=== PATIENT | male | born 1980 | race Caucasian/White ===

== ENCOUNTER 2019-02-27 08:24 | Emergency (ER) | payer SELFPAY ==
[~2019-02-27] VITALS: Ht 185.4 cm; Wt 68.0 kg
[2019-02-27] MEDS ORDERED: IV NORMAL SALINE 1,000ML 1,000 ML IV SCH (09:05)
--- NOTE | 2019-02-27 09:10 | PHYS DOC ---
Past History Past Medical History: No Pertinent History Past Surgical History: No Surgical History Smoking: Cigar Alcohol Use: None Drug Use: Marijuana Adult General Chief Complaint Chief Complaint: BACK PAIN OR INJURY HPI HPI Patient is a 38-year-old male who presents with right-sided back pain that has been getting worse over the past 2 weeks. Initially after lifting to move in with family locally. Radiation down his right side into his right testicle now. Increased pain with movement. No dysuria or hematuria. No fever. No personal history of kidney stones. Reports that the pain is sharp, severe, minimal relief with ibuprofen and acetaminophen.[] Review of Systems Review of Systems Constitutional: Denies fever or chills [] Eyes: Denies change in visual acuity, redness, or eye pain [] HENT: Denies nasal congestion or sore throat [] Respiratory: Denies cough or shortness of breath [] Cardiovascular: No chest pain or palpitations[] GI: Denies abdominal pain, nausea, vomiting, bloody stools or diarrhea [] : Denies dysuria or hematuria [] Musculoskeletal: Denies back pain or joint pain [] Integument: Denies rash or skin lesions [] Neurologic: Denies headache, focal weakness or sensory changes [] Endocrine: Denies polyuria or polydipsia [] All other systems were reviewed and found to be within normal limits, except as documented in this note. Physical Exam Physical Exam Constitutional: Well developed, well nourished, mild discomfort, non-toxic appearance. [] HENT: Normocephalic, atraumatic, bilateral external ears normal, oropharynx moist, no oral exudates, nose normal. [] Eyes: PERRLA, EOMI, conjunctiva normal, no discharge. [] Neck: Normal range of motion, no tenderness, supple, no stridor. [] Cardiovascular:Heart rate regular rhythm, no murmur [] Lungs & Thorax: Bilateral breath sounds clear to auscultation [] Abdomen: Bowel sounds normal, soft, no tenderness, no masses, no pulsatile masses. [] Skin: Warm, dry, no erythema, no rash. [] Back: Tenderness and spasm of the right-sided lumbar paraspinal musculature. Decreased active range of motion, especially with left side bending and rotation. Normal gait., Mild right sided CVA tenderness. [] Extremities: No tenderness, no cyanosis, no clubbing, ROM intact, no edema. [] Neurologic: Alert and oriented X 3, normal motor function, normal sensory function, no focal deficits noted. [] Psychologic: Affect normal, judgement normal, mood normal. [] EKG EKG [] Radiology/Procedures Radiology/Procedures PROCEDURE: CT ABDOMEN PELVIS WO CONTRAST CT scan of the abdomen and pelvis without contrast 02/27/2019 CLINICAL HISTORY: Right flank pain. TECHNIQUE: Unenhanced, contiguous, 3 mm axial sections were obtained through the abdomen and pelvis. One or more of the following individualized dose reduction techniques were utilized for this study: 1. Automated exposure control. 2. Adjustment of the mA and/or kV according to patient size. 3. Use of iterative reconstruction technique. FINDINGS: Images through the lung bases demonstrate linear bands of subsegmental atelectasis involving both lower lobes. The liver, spleen, pancreas, and adrenal glands are within normal limits. No renal or ureteral calculus is seen. There is no evidence of obstruction of either collecting system. A 1.3 cm rounded low-attenuation lesion is seen involving the midpole of the left kidney. This likely represents a cyst. Very mild atherosclerotic calcification of the abdominal aorta and its branches is seen. The abdominal aorta tapers normally. The gallbladder is well-distended. No free fluid or free air is seen within the abdomen. There is no evidence of bowel obstruction. Air and stool is seen throughout the colon. The appendix is partially visualized and is within normal limits. A moderate amount of stool is seen throughout the colon. Images through the pelvis demonstrate the urinary bladder distended with urine. No free fluid is seen. A moderate amount of stool is seen involving the rectum. Very mild S-shaped curvature of the thoracolumbar spine is seen. Degenerative changes are seen involving the lower lumbar spine. IMPRESSION: No acute abnormality is seen.[] Course & Med Decision Making Course & Med Decision Making Pertinent Labs and Imaging studies reviewed. (See chart for details) ED course: Patient arrived, was placed in bed, and tolerated exam well. He was transported to and from [place] with any complications. He did get good pain relief from the IV NSAIDs. Discussed findings and plan with the patient who voiced understanding. He was discharged in improved condition. Medical decision making: Patient does not appear to have a kidney stone, urinary tract infection, appendicitis, significant electrolyte abnormality, dissecting aortic aneurysm, nor other significant medical or surgical issue.[] Dragon Disclaimer Dragon Disclaimer This electronic medical record was generated, in whole or in part, using a voice recognition dictation system. Departure Departure: Impression: Primary Impression: Lumbar paraspinal muscle spasm Disposition: HOME, SELF-CARE Condition: IMPROVED Referrals: PCP,NO (PCP) Patient Instructions: Low Back Strain with [facility] Additional Instructions: Follow-up with your regular doctor in 2 days. If you do not have regular doctor list of local clinics will be provided for you. Take the medication as prescribed. Return to the ER if worsening pain, loss of bowel or bladder control, or any other concerns. Scripts Orphenadrine Citrate (ORPHENADRINE CITRATE) 100 Mg Tablet.er 100 MG PO BID for BACK PAIN, #20 TAB.SR Prov: JOSEPH NOBLE DO 02/27/19 Meloxicam (MELOXICAM) 7.5 Mg Tablet 7.5 MG PO DAILY for PAIN, #20 TAB Prov: JOSEPH NOBLE DO 02/27/19 JOSEPH NOBLE DO Feb 27, 2019 09:10
[2019-02-27] MEDS ORDERED: ORPHENADRINE CITRATE 60 MG/2 ML VIAL. IV ONE (09:15)
[2019-02-27] MEDS ORDERED: KETOROLAC 30 MG/ML VIAL. IV ONE (09:15)
[2019-02-27 09:26] LABS: BASO % 1 % (0-3); EOS # 0.2 x10^3/uL (0.0-0.7); EOS % 3 % (0-3); HEMATOCRIT 46.2 % (39.0-53.0); HEMOGLOBIN 15.6 g/dL (13.0-17.5); LYMPH # 2.3 x10^3/uL (1.0-4.8); LYMPH % 29 % (24-48); MEAN CORPUSCULAR HEMOGLOBIN 32 pg (25-35); MEAN CORPUSCULAR HGB CONC 34 g/dL (31-37); MEAN CORPUSCULAR VOLUME 93 fL (79-100); MONO # 0.4 x10^3/uL (0.0-1.1); MONO % 6 % (0-9); NEUT # 4.8 x10^3uL (1.8-7.7); NEUT % 62 % (31-73); PLATELET COUNT 230 x10^3/uL (140-400); RED BLOOD COUNT 4.95 x10^6/uL (4.30-5.70); RED CELL DISTRIBUTION WIDTH 13.6 % (11.5-14.5); WHITE BLOOD COUNT 7.8 x10^3/uL (4.0-11.0)
[2019-02-27 09:34] LABS: AMPHETAMINE/METHAMPHETAMINE NEG (NEG); BARBITURATES NEG (NEG); BENZODIAZEPINES NEG (NEG); CANNABINOIDS POS (NEG); COCAINE NEG (NEG); METHADONE NEG (NEG); OPIATES NEG (NEG); PHENCYCLIDINE NEG (NEG)
[2019-02-27 09:37] LABS: BACTERIA,URINE 0 /HPF (0-FEW); BILIRUBIN,URINE NEG (NEG); CLARITY,URINE CLEAR; COLOR,URINE YELLOW; GLUCOSE,URINE NEG (NEG); NITRITE,URINE NEG (NEG); RBC,URINE 0 /HPF (0-2); UROBILINOGEN,URINE 0.2 mg/dL (0.2 mg/dL); WBC,URINE RARE /HPF (0-4)
[2019-02-27 09:40] LABS: ALBUMIN 3.9 g/dL (3.4-5.0); ALBUMIN/GLOBULIN RATIO 1.1 (1.0-1.7); CALCIUM 8.7 mg/dL (8.5-10.1); CREATININE 0.9 mg/dL (0.7-1.3); GFR 93.5; POTASSIUM 4.3 mmol/L (3.5-5.1); TOTAL BILIRUBIN 0.4 mg/dL (0.2-1.0); TOTAL PROTEIN 7.5 g/dL (6.4-8.2)
--- NOTE | 2019-02-27 10:08 | RAD ---
CT scan of the abdomen and pelvis without contrast 02/27/2019 CLINICAL HISTORY: Right flank pain. TECHNIQUE: Unenhanced, contiguous, 3 mm axial sections were obtained through the abdomen and pelvis. One or more of the following individualized dose reduction techniques were utilized for this study: 1. Automated exposure control. 2. Adjustment of the mA and/or kV according to patient size. 3. Use of iterative reconstruction technique. FINDINGS: Images through the lung bases demonstrate linear bands of subsegmental atelectasis involving both lower lobes. The liver, spleen, pancreas, and adrenal glands are within normal limits. No renal or ureteral calculus is seen. There is no evidence of obstruction of either collecting system. A 1.3 cm rounded low-attenuation lesion is seen involving the midpole of the left kidney. This likely represents a cyst. Very mild atherosclerotic calcification of the abdominal aorta and its branches is seen. The abdominal aorta tapers normally. The gallbladder is well-distended. No free fluid or free air is seen within the abdomen. There is no evidence of bowel obstruction. Air and stool is seen throughout the colon. The appendix is partially visualized and is within normal limits. A moderate amount of stool is seen throughout the colon. Images through the pelvis demonstrate the urinary bladder distended with urine. No free fluid is seen. A moderate amount of stool is seen involving the rectum. Very mild S-shaped curvature of the thoracolumbar spine is seen. Degenerative changes are seen involving the lower lumbar spine. IMPRESSION: No acute abnormality is seen. Electronically signed by: Armando Valle MD (02/27/2019 10:05 AM) [id number]
[2019-02-27] MEDS ORDERED: ORPH-16 PO (10:21)
[2019-02-27] MEDS ORDERED: MELO7.5T29 PO (10:21)
[2019-02-27 10:24] VITALS: BP 111/67
== END 2019-02-27 10:28 | disposition home or self-care (01) ==
LOC: ER 08:24
DX: M62.830 Muscle spasm of back (principal); M54.5 Low back pain; F17.210 Nicotine dependence, cigarettes, uncomplicated
CPT/HCPCS: 36415; 74176; 80053; 80307; 81001; 83690; 85025; 96361; 96374; 99285; J1885; J7030

== ENCOUNTER 2019-03-08 04:44 | Emergency (ER) | payer SELFPAY ==
[~2019-03-08] VITALS: Ht 185.4 cm; Wt 61.7 kg
[~2019-03-08 04:44] MED LIST: MELO7.5T29 PO; ORPH-16 PO
[2019-03-08 04:50] VITALS: BP 139/88
[2019-03-08] MEDS ORDERED: norflex (05:02)
[2019-03-08] MEDS ORDERED: MELO7.5T29 PO (05:02)
--- NOTE | 2019-03-08 05:05 | PHYS DOC ---
Past History Past Medical History: No Pertinent History Past Surgical History: No Surgical History Smoking: Cigar Alcohol Use: None Drug Use: Marijuana Adult General Chief Complaint Chief Complaint: BACK PAIN - NO INJURY HPI HPI Patient is a 38-year-old male who presents to the emergency department for evaluation. He states for the past week, he has had lower back pain, which has gradually been worsening, causing pain radiating down his right hip, down his right leg. He also reports numbness and tingling in his right leg. He is unable to bear full weight on his right leg, and is walking with a limping gait. He has not had any incontinence or saddle anesthesia. He was seen in the emergency department here about a week ago, and notes and diagnostic testing results of been reviewed. Reports initial improvement but the muscle relaxer and meloxicam he was prescribed, but states that over the past 4 days, his tingling and increased pain, as well as some weakness due to the pain, have all worsened. Certain movements and attempted ambulation worsen his pain. There are no alleviating factors to his symptoms. He has not had any traumatic injury. Review of Systems Review of Systems Constitutional: Denies fever or chills [] GI: Denies abdominal pain, nausea, vomiting, bloody stools or diarrhea [] : Denies dysuria or hematuria [] Musculoskeletal: Denies neck, or upper back pain or joint pain [] Integument: Denies rash or skin lesions [] Neurologic: Per history of present illness[] Allergies Allergies Allergies Coded Allergies Type Severity Reaction Last Updated Verified No Known Drug Allergies 03/08/19 No Physical Exam Physical Exam PHYSICAL EXAM: CONSTITUTIONAL: Well developed, well nourished HEAD: normocephalic, atraumatic EENT: PERRL, EOMI. Conjunctivae normal color, sclerae non-icteric; moist mucous membranes. NECK: Supple, non-tender; no meningismus. LUNGS: Lungs CTA, breathing even and unlabored. Normal air movement. HEART: Regular rate and rhythm, no murmur CHEST: No deformity; non-tender ABDOMEN: The abdomen is soft, and non-tender, no masses or bruits. EXTREM: Normal ROM; no deformity, no calf tenderness. Normal pulses palpable in all extremities. There is no pedal edema. SKIN: No rash; no diaphoresis NEURO: Alert; normal speech and cognition; CN's grossly intact; strength grossly intact without focal deficit. Sensation is intact, to pinprick, to the lower extremities bilaterally, as well as the perineal region. There is no foot drop. There is mild weakness to dorsiflexion and plantar flexion of the right foot relative to the left. Patellar reflexes are 2+ bilaterally. Straight leg raise is positive on the right at about 30. BACK: No CVA TTP. There is no reproducible tenderness to palpation to the thoracic or lumbar spine. EKG EKG [] Radiology/Procedures Radiology/Procedures [] Course & Med Decision Making Course & Med Decision Making Pertinent Labs and Imaging studies reviewed. (See prior chart for details) []5:10 AM: Patient is a 38-year-old man who presents with signs consistent with a lumbar radiculopathy. I discussed this with the patient, as well as the suspicion that he has either a herniated disc or degenerative arthritis causing radiculopathy, the need for diagnostic imaging with an MRI, and the need for a spinal surgery consultation. The patient was very resistant to any of this plan of care, and was combative and abrasive, and he declined my recommendation for transfer to a facility that had MRI capability for evaluation. I did discuss the natural history of the patient's condition, including progressive symptoms of pain and loss of motor function if he did not get this taken care of in a timely manner, including the possibility of permanent loss of motor function or other neurologic function. I discussed the treatment options of my suspicion of radiculopathy was correct, including spinal injections or surgery if there is an anatomic abnormality causing the radiculopathy. To this, The patient stated "I don't need no spine surgeon, and I am not having any of that done". He then proceeded to [facility] out of the emergency department. Dragon Disclaimer Dragon Disclaimer This electronic medical record was generated, in whole or in part, using a voice recognition dictation system. Departure Departure: Impression: Primary Impression: Lumbar radiculopathy Disposition: AGAINST MEDICAL ADVICE Condition: STABLE Referrals: PCP,NO (PCP) Patient Instructions: Lumbosacral Radiculopathy BLAS HOFFMAN MD March 08, 2019 05:05
== END 2019-03-08 05:12 | disposition left against medical advice (07) ==
LOC: ER 04:44
DX: M54.16 Radiculopathy, lumbar region (principal); F17.210 Nicotine dependence, cigarettes, uncomplicated
CPT/HCPCS: 99284